=== PATIENT | male | born 1965 ===

== ENCOUNTER 2017-09-01 06:46 | Day surgery (SDC) | payer BC ==
--- NOTE | 2017-08-31 18:42 | Pre-Procedure Note/Attestation ---
Pre-Procedure Note/Attestation Complete Prior to Procedure Planned Procedure: right Procedure Narrative: RIght neck advancement flap Indications for Procedure Pre-Operative Diagnosis: Ope n wound right neck Attestation I attest that I discussed the nature of the procedure; its benefits; risks and complications; and alternatives (and the risks and benefits of such alternatives ), prior to the procedure, with the patient (or the patient's legal equal opportunity representative). I attest that, if there was a reasonable possibility of needing a blood transfusion, the patient (or the patient's legal equal opportunity representative) was given the [facility] standardized written summary, pursuant to the David Fahad Blood Safety Act ([place] Health and Safety Code # 1645, as amended). I attest that I re-evaluated the patient just prior to the surgery and that there has been no change in the patient's H&P, DIONY GALLEGOS Aug 31, 2017 18:42
--- NOTE | 2017-08-31 18:44 | Brief Operative Note ---
Immediate Post Operative Note Operative Note Chief Complaint: open right neck wound Pre-op Diagnosis: Open wound right neck Procedure: Closure of right neck wound with local advancement flap under anesthesia. Post-op Diagnosis: same as pre-op Surgeon: Diony Gallegos Enterprise Project Manager: none Additional Surgeons: none Anesthesiologist: Poornima Anesthesia: MAC Specimen: yes - right neck scar Complications: none Condition: stable Fluids: D5LR Estimated Blood Loss: volume - 20 cc Drains: none Packing: none Implant(s) used?: No DIONY GALLEGOS Aug 31, 2017 18:44
--- NOTE | 2017-08-31 18:46 | Discharge Instructions ---
Discharge Instructions Discharge Instructions Follow up with: Dr. Gallegos Thursday09/04/17 8 AM Thursday Diet: regular Resume Normal Activity?: No Activity: light activity Pneumonia Vaccine: pt refused vaccine Influenza Vaccine (Nov to Apr): pt refused vaccine Return to Work/School on: Sep 14, 2017 For Surgical Patients Dressing Care: keep dry and clean For Congestive Heart Failure Reminder Report to your physician any weight gain of 5 pounds or more in one week. DIONY GALLEGOS Aug 31, 2017 18:46
[2017-09-01] VITALS (13 sets, daily range): BP systolic 106–130; BP diastolic 66–87
[~2017-09-01] VITALS: Ht 177.8 cm; Wt 82.6 kg
--- NOTE | 2017-09-01 | Pre-op HX & Phy Repo 2 SIG ---
DATE OF ADMISSION: 09/01/2017 DATE OF SURGERY: 09/01/2017 INDICATION FOR SURGERY: The patient with recurrent keloid on his right neck and had been operated on 11 days ago. Day #7, it was healing well, well-approximated, benign and opened up while in his sleep. I saw him day #10, and decided it would be too much tension to close this and he would need a flap, which require some anesthesia rather than just local. PREOPERATIVE DIAGNOSIS: open right neck wound PAST MEDICAL HISTORY: Remarkable for allergies to sulfa drugs, has GERD, takes Prilosec, otherwise is in good health, has high normal LDL being evaluated by his primary care physician. 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 PAST SURGICAL HISTORY: Excision of recurrence of keloid in his right neck. He also had a fractured leg about 25 years ago that required repair, which was not amenable to second surgery. PHYSICAL EXAMINATION: VITAL SIGNS: He is 5 feet 10 inches, 170 pounds and BMI 24.29. Blood pressure 120/80, temperature 98.6 degrees, heart rate 65, and respiratory rate 13. HEENT: Head is normocephalic. Eyes, PERRLA. EOMI. Lips, tongue, and pharynx normal. NECK: No palpable masses, although he does have a open wounds 8 x 4 cm on his right neck. HEART: Normal S1 and S2. No S3 or S4. No murmur, bruit, gallop, or rub. CHEST: Clear. ABDOMEN: Soft, nontender. Normoactive bowel sounds. EXTREMITIES: Grossly normal. NEUROLOGIC: Cranial nerves II through XII grossly normal. GENITOURINARY: Not done, as not indicated and he has regular care through his private physician. ASSESSMENT: Wound secondary to postoperative surgery where the wound opened up. PLAN: He is scheduled for an advancement flap under IV sedation tomorrow morning to close this. We discussed the risks, benefits, and alternatives. He has signed consent in my office for the surgery tomorrow. He will sign the consent at the hospital for the hospital OR and for the anesthesia. He is stable for surgery. Vijay Morse M.D. DR: ALBA JOB#: [id number] CC: DONOVAN
[~2017-09-01 06:46] MED LIST: PROBIOTIC-10 11 EACH PO; VITAMIN B12-FO1 EAC1 PO; VITAMIN C1000 M4 PO; VITAMIN D32000 UNI3 PO
[2017-09-01] MEDS ORDERED: ceFAZolin sod 1 GM in D5W 55 ML IV ONE (08:30)
[2017-09-01] MEDS ORDERED: Bupivacaine 0.5% Inj 30 ml vial INJ ONE (08:31)
[2017-09-01] MEDS ORDERED: Lidocaine 1% 10mg/ml/EPI 0.01mg/ml 50ml INJ ONE (08:31)
[2017-09-01] MEDS ORDERED: Midazolam 2mg/2ml Inj ONE (08:45)
[2017-09-01] MEDS ORDERED: Propofol 200mg/20ml IV ONE (08:47)
[2017-09-01] MEDS ORDERED: Lidocaine 1% MPF 10mg/ml 5ml ONE (08:47)
[2017-09-01] MEDS ORDERED: fentaNYL 100 mcg/2 mL IV ONE (08:47)
[2017-09-01] MEDS ORDERED: Dexamethasone 4mg/ml vial IVP ONE (09:00)
[2017-09-01] MEDS ORDERED: NS Irrig 1000ml ONE (09:00)
[2017-09-01] MEDS ORDERED: Sterile Water Irrig 1000ml IRRIG ONE (09:00)
[2017-09-01] MEDS ORDERED: LR 1000ml 1,000 ML IVLG SCH (09:25)
[2017-09-01] MEDS ORDERED: Meperidine 50mg/ml Inj(FOR RIGORS ONLY) IVP PRN (09:30)
[2017-09-01] MEDS ORDERED: DiphenhydrAMINE 50mg/ml Inj IVP PRN (09:30)
--- NOTE | 2017-09-01 09:31 | Anethesia Preoperative Eval ---
Anesthesia Pre-op PMH/ROS General Date of Evaluation: Sep 01, 2017 Time of Evaluation: 08:41 Anesthesiologist: Poornima ASA Score: ASA 1 Mallampati Score Class I : Soft palate, uvula, fauces, pillars visible Class II: Soft palate, uvula, fauces visible Class III: Soft palate, base of uvula visible Class IV: Only hard plate visible Mallampati Classification: Class II Surgeon: Mini Diagnosis: Open wound right neck Surgical Procedure: Flap advancement right neck Allergies: Coded Allergies: PRIMAQUINE (Verified Allergy, Unknown, 08/31/17) SULFA (SULFONAMIDE ANTIBIOTICS) (Verified Allergy, Unknown, 08/31/17) Medications: see eMAR Past Medical History Cardiovascular: Denies: HTN, CAD, [place], valve dz, arrhythmia, other Pulmonary: Denies: asthma, COPD, JOHNNA, other Gastrointestinal/Genitourinary: Denies: GERD, CRI, ESRD, other Neurologic/Psychiatric: Denies: dementia, CVA, depression/anxiety, TIA, other Endocrine: Denies: DM, hypothyroidism, steroids, other HEENT: Denies: cataract (L), cataract (R), glaucoma, [place] (L), [place] (R), other Hematology/Immune: Denies: anemia, DVT, bleeding disorder, other Musculoskeletal/Integumentary: Denies: OA, RA, DJD, DDD, edema, other PMH Narrative: Denies significant PMH PSxH Narrative: Scar revision, femur surgery Anesthesia Pre-op Phys. Exam Physician Exam Last Vital Signs Date Time Temp Pulse Resp B/P (MAP) Pulse Ox O2 Delivery O2 Flow Rate FiO2 09/01/17 07:28 Room Air 09/01/17 07:28 98.2 56 18 130/87 (101) 99 98.2 Constitutional: NAD Neurologic: CN 2-12 intact Cardiovascular: RRR, no M/R/G Respiratory: CTA Gastrointestinal: S/NT/ND Airway Exam Mallampati Score: Class II MO: full ROM: full Teeth: intact Anesthesia Pre-op A/P Risk Assessment & Plan Assessment: Healthy male for right neck flap advancement Plan: MAC vs GA with LMA Status Change Before Surgery: No Pre-Antibiotics Drug: Ancef Given Within 1 Hr of Incision: Yes Time Given: 08:55 David Noguera MD Sep 01, 2017 09:31
--- NOTE | 2017-09-01 09:32 | Immediate Post-Op Evaluation ---
Immediate Post-Op Evalulation Immediate Post-Op Evalulation Procedure: Flap advancement right neck Date of Evaluation: Sep 01, 2017 Time of Evaluation: 11:15 IV Fluids: 700 Blood Pressure Systolic: 122 Blood Pressure Diastolic: 67 Pulse Rate: 75 Respiratory Rate: 20 O2 Sat by Pulse Oximetry: 98 Temperature (Fahrenheit): 97.3 Pain Score (1-10): 0 Nausea: No Vomiting: No Complications No complication Patient Status: awake, patent, none Hydration Status: adequate Drug: Ancef Given Within 1 Hr of Incision: Yes Time Given: 08:55 David Noguera MD Sep 01, 2017 09:32
--- NOTE | 2017-09-01 11:16 | 48 Hour Post Anesthesia Eval ---
Post Anesthesia Evaluation Procedure: Flap advancement right neck Date of Evaluation: Sep 01, 2017 Time of Evaluation: 11:44 Blood Pressure Systolic: 122 0: 72 Pulse Rate: 83 Respiratory Rate: 18 O2 Sat by Pulse Oximetry: 98 Airway: patent Nausea: No Vomiting: No Pain Intensity: 0 Hydration Status: adequate Cardiopulmonary Status: Stable Mental Status/LOC: patient returned to baseline Follow-up Care/Observations: As per surgery Post-Anesthesia Complications: No anesthetic complication Follow-up care needed: N/A David Noguera MD Sep 01, 2017 11:16
[2017-09-01] MEDS ORDERED: HYDROmorphone 1mg/ml Carpuject SUBQ PRN (18:01)
[2017-09-01] MEDS ORDERED: Norco 5mg/325mg tab ORAL PRN (18:01)
[2017-09-01] MEDS ORDERED: Metoclopramide 10mg/2ml Inj IVP PRN (18:01)
--- NOTE | 2017-09-02 00:30 | Operative Note - Dictated ---
DATE OF OPERATION: 09/01/2017 SURGEON: Vijay Morse M.D. ASSOCIATE MERCHANDISE PLANNER: None. ANESTHESIOLOGIST: David Noguera M.D. ANESTHESIA: LMA general anesthesia as well as 20 mL 50:50 mixture 1% lidocaine, 1000 epinephrine Marcaine 0.5% with a 50:50 mixture. INDICATION FOR PROCEDURE: The patient had a keloid removed approximately 11 days ago. His sutures were removed on day #7, it was well healed. On day #9, he woke up early in the morning 4 a.m. with part of the wound open. He saw me on day #10. It was decided it would be better to do an advancement flap under anesthesia for closure. PREOPERATIVE DIAGNOSIS: An 8 x 4 cm open wound, right neck. POSTOPERATIVE DIAGNOSIS: An 8 x 4 cm open wound, right neck. FINDINGS: An 8 x 4 cm open wound, right neck. PROCEDURE: Closure of right neck open wound with advancement flap. TECHNIQUE: The patient was prepped and draped in the usual manner. The LMA general anesthesia after a time-out was injected with the aforementioned lidocaine, Marcaine, and epinephrine mixture. I then proceeded to undermine the edges of the open wound and created a release in the inferior aspect above the clavicle going posteriorly. I then proceeded to utilize electrocautery at a setting of 14 to lift the flap. I was then able to freshen the edges of the previous incision, cutting with a 15 blade. This was sent for permanent section per the regulations of the OR. I then proceeded to clean with Betadine and close multilayer with a 4-0 plain suture x20 in 2 layers to approximate the skin edges. I then closed the epithelial edges with a running horizontal mattress Prolene. There was a small dog ear at the anterior neck, which was cut and closed with a 5-0 Prolene horizontal mattress. Tissue glue was utilized and Steri-Strips, Telfa and a Tegaderm 3 pieces to cover the neck. Sponge and needle count was correct. Estimated blood loss 20 mL. Counts, none. Drains, none. In the recovery room, 25 minutes later, the patient could smile, purse his lips, speak and was stable . Vijay Mores M.D. DR: ALBA JOB#: [id number] CC: DONOVAN
== END 2017-09-01 13:50 | disposition home or self-care (01) ==
LOC: SUR 06:46
DX: S11.90XA Unspecified open wound of unspecified part of neck, initial encounter (principal); K21.9 Gastro-esophageal reflux disease without esophagitis; Z88.2 Allergy status to sulfonamides
CPT/HCPCS: 14301; J0690; J2175; J2250; J2405; J2704; J3010; J3490; 94003; 94150